=== PATIENT | male | born 1960 | race Caucasian/White ===

== ENCOUNTER 2019-03-22 09:15 | Outpatient (CLI) | payer MEDICARE, MEDICAID ==
[~2019-03-22 09:15] MED LIST: ALLO100T PO; APIX5TAB3 PO; ATOR40TA PO; CITA20TA2 PO; FAMO20TA8 PO; FLO0.4C PO; METO-539 PO; POLY17PO10 PO; SENN-162 PO
[2019-03-22 12:28] LABS: C DIFF SPECIMEN=DIARRHEA? ACCEPTABLE
[2019-03-22 12:30] LABS: C DIFF ANTIGEN POSITIVE (NEGATIVE); C DIFFICILE TOXINS A&B POSITIVE (Neg)
== END 2019-03-22 23:59 | disposition home or self-care (01) ==
LOC: LAB SPEC 09:15
PROVIDERS: ATTEND Specialist
DX: J96.92 Respiratory failure, unspecified with hypercapnia (principal)
CPT/HCPCS: 87324; 87449

== ENCOUNTER 2019-04-11 08:40 | Day surgery (SDC) | payer OTHER ==
[~2019-04-11] VITALS: Ht 172.7 cm; Wt 146.5 kg
[~2019-04-11 08:40] MED LIST changes: +LIDOcaine 1%/PF 5ML 10 MG/ML VIAL ONE
--- NOTE | 2019-04-11 09:06 | NUR ---
RECEIVED PT VIA [facility] FROM [facility], NO VERBAL REPORT THIS A.M. FROM [facility]. [facility] REPORTS PT FROM [facility]-DIFF ISOLATION. ON 4L 02 BY NC. NOTED LARGE 4 INCH DIAMETER BLISTER ON RIGHT LOWER EXTREMITY. RAISED 1/2 INCH IN HEIGHT. PT ALERT AND ORIENTED. STATES NO RUNNY STOOLS. PICC LINE NOTED AT RIGHT UPPER ARM. TRES YODER HERE TO REMOVE TDC. SUPPLIES IN ROOM
[2019-04-11 09:18] VITALS: BP 128/83
[2019-04-11] MEDS ORDERED: FURO10SO IV (09:51)
[2019-04-11] MEDS ORDERED: [UNRECOGNIZED DRUG - OTHER] SQ (09:55)
[2019-04-11] MEDS ORDERED: GLARGINE SQ (09:55)
[2019-04-11] MEDS ORDERED: INSU100C10 SQ (09:56)
[2019-04-11] MEDS ORDERED: MAGN64TA10 PO (09:57)
[2019-04-11 11:40] VITALS: BP 131/63
== END 2019-04-11 11:40 ==
LOC: SSTAY O 08:40
PROVIDERS: ATTEND Radiology Vascular & Interventional Radiology
DX: Z49.01 Encounter for fitting and adjustment of extracorporeal dialysis catheter (principal); I50.20 Unspecified systolic (congestive) heart failure; G47.30 Sleep apnea, unspecified; I48.0 Paroxysmal atrial fibrillation; I27.9 Pulmonary heart disease, unspecified; E11.22 Type 2 diabetes mellitus with diabetic chronic kidney disease; N18.3 Chronic kidney disease, stage 3 (moderate); N40.0 Benign prostatic hyperplasia without lower urinary tract symptoms; D64.9 Anemia, unspecified; E66.01 Morbid (severe) obesity due to excess calories; Z68.41 Body mass index [BMI] 40.0-44.9, adult; Z98.890 Other specified postprocedural states; Z79.899 Other long term (current) drug therapy; Z79.4 Long term (current) use of insulin; Z88.0 Allergy status to penicillin; Z83.3 Family history of diabetes mellitus; Z82.49 Family history of ischemic heart disease and other diseases of the circulatory system
CPT/HCPCS: 36589